=== PATIENT | female | born 1965 | race Caucasian/White ===

== ENCOUNTER 2019-02-11 12:36 | Emergency (ER) | payer SELFPAY ==
[~2019-02-11] VITALS: Ht 165.1 cm; Wt 86.2 kg
--- NOTE | ~2019-02-11 | EKG ---
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
[~2019-02-11 12:36] MED LIST: AMOXICILLIN500 MG PO; ASPIRIN1 POW PO; BACTRIM DS 8001 TA1 PO; BLOOD PRESSURE MED PO; CARDIZEM CD120 MG PO; CEPHALEXIN500 M1 PO; CIPRO500 MG PO; CLINDAMYCIN HC300 MG PO; CYCLOBENZAPRINE5 M3 PO; DARVOCET N 1001 TAB PO; DOXYCYCLINE100 M3 PO; FLEXERIL5 MG PO; HYDROCODONE BIT1 T11 PO; MOTRIN800 MG PO; NAPROSYN500 MG PO; NKHM; NORCO 5-325 TA1 EACH PO; OVRAL-21 50 MCG1 TAB PO; PRAVACHOL40 MG PO; PREDNISONE10 MG PO; ULTRAM50 MG PO
[2019-02-11 13:08] LABS: BASO # 0.1 10*3/uL (0.0-0.1); BASO % 0.4 % (0.0-1.0); EOS # 0.1 10*3/uL (0.0-0.4); EOS % 0.9 % (1.0-4.0); HEMATOCRIT 46.7 % (37.0-47.0); LYMPH # 4.2 10*3/uL (1.3-4.4); LYMPH % 31.9 % (27.0-41.0); MEAN CELL VOLUME 93.6 fl (81.0-99.0); MEAN CORPUSCULAR HGB 32.1 pg (27.0-31.0); MEAN CORPUSCULAR HGB CONC 34.3 g/dl (33.0-37.0); MEAN PLATELET VOLUME 9.6 fl (9.6-12.3); MONO # 0.7 10*3/uL (0.1-1.0); MONO % 5.2 % (3.0-9.0); NEUT % 61.1 % (47.0-73.0); PLATELET COUNT AUTOMATED 307 10*3/uL (130-400); RED BLOOD COUNT 4.99 10*6/uL (4.10-5.10); RED CELL DISTRI WIDTH 13.3 % (0-14.5); WHITE BLOOD COUNT 13.1 10*3/uL (4.8-10.8)
[2019-02-11 13:17] LABS: ACT PARTIAL THROMBO TIME 26.5 SECONDS (20.8-31.5)
[2019-02-11 13:33] LABS: ALBUMIN 3.6 gm/dl (3.1-4.5); ALKALINE PHOSPHATASE 115 U/L (45-117); BUN 9 mg/dl (7-24); CHLORIDE 105 mmol/L (98-107); CREATININE 0.62 mg/dL (0.55-1.02); SGOT/AST 17 IU/L (3-35); SGPT/ALT 27 U/L (12-78); SODIUM 140 mmol/L (136-145); TOTAL PROTEIN 7.3 gm/dL (6.4-8.2); TROPONIN I < 0.015 ng/ml (<0.045)
[2019-02-11 13:34] LABS: POTASSIUM 3.6 mmol/L (3.5-5.1)
== END 2019-02-11 14:28 | disposition left against medical advice (07) ==
LOC: ED 12:36
PROVIDERS: Emergency Medicine
DX: R07.9 Chest pain, unspecified (principal); M25.512 Pain in left shoulder; M79.602 Pain in left arm; I10 Essential (primary) hypertension; F17.210 Nicotine dependence, cigarettes, uncomplicated

== ENCOUNTER → 2019-02-17 | Outpatient (CLI) | payer SELFPAY ==
[2019-02-17 16:24] LABS: BILIRUBIN NEGATIVE (NEGATIVE); BLOOD TRACE-INTACT (NEGATIVE); CLARITY SL CLOUDY (CLEAR); COLOR YELLOW (YELLOW); GLUCOSE NEGATIVE (NEGATIVE); KETONE NEGATIVE (NEGATIVE); LEUKO ESTERASE 2+ (NEGATIVE); NITRITE NEGATIVE (NEGATIVE); SPECIFIC GRAVITY >= 1.030 (1.005-1.030); UROBILINOGEN 0.2 E.U./dl (0.2-1.0)
[2019-02-17 16:32] LABS: BACTERIA 2+; WBC TNTC wbc/hpf (0-5)
== END | disposition home or self-care (01) ==
LOC: RESCLI 01:02
PROVIDERS: Student in an Organized Health Care Education/Training Program
DX: I10 Essential (primary) hypertension (principal); R35.0 Frequency of micturition; R07.9 Chest pain, unspecified; R50.9 Fever, unspecified; E78.00 Pure hypercholesterolemia, unspecified; J44.9 Chronic obstructive pulmonary disease, unspecified; Z71.6 Tobacco abuse counseling; Z79.82 Long term (current) use of aspirin; Z79.899 Other long term (current) drug therapy; Z87.891 Personal history of nicotine dependence; Z88.8 Allergy status to other drugs, medicaments and biological substances

== ENCOUNTER → 2019-08-13 | Outpatient (CLI) | payer SELFPAY | END | disposition home or self-care (01) | LOC: RESCLI 02:06 | DX: Z23 Encounter for immunization (principal); I10 Essential (primary) hypertension; M17.0 Bilateral primary osteoarthritis of knee; E66.09 Other obesity due to excess calories; Z72.0 Tobacco use; Z71.6 Tobacco abuse counseling; Z68.36 Body mass index [BMI] 36.0-36.9, adult; Z88.8 Allergy status to other drugs, medicaments and biological substances ==

== ENCOUNTER → 2019-11-27 | Outpatient (CLI) | payer SELFPAY | END | disposition home or self-care (01) | LOC: RESCLI 01:20 | DX: I10 Essential (primary) hypertension (principal); M17.0 Bilateral primary osteoarthritis of knee; E66.09 Other obesity due to excess calories; Z72.0 Tobacco use; Z71.6 Tobacco abuse counseling; Z79.899 Other long term (current) drug therapy ==

== ENCOUNTER → 2020-07-09 | Outpatient (CLI) | payer SELFPAY | END | disposition home or self-care (01) | LOC: RESCLI 01:05 | PROVIDERS: ATTEND Emergency Medicine | DX: I10 Essential (primary) hypertension (principal); E66.9 Obesity, unspecified; M17.0 Bilateral primary osteoarthritis of knee; Z79.899 Other long term (current) drug therapy; Z98.51 Tubal ligation status; Z87.891 Personal history of nicotine dependence ==

== ENCOUNTER → 2020-10-15 | Outpatient (CLI) | payer SELFPAY | END | disposition home or self-care (01) | LOC: COVID19 11:29 | PROVIDERS: ATTEND Social Worker Clinical | DX: Z20.828 Contact with and (suspected) exposure to other viral communicable diseases (principal) ==

== ENCOUNTER → 2020-11-17 | Outpatient (CLI) | payer SELFPAY | END | disposition home or self-care (01) | LOC: RESCLI 00:15 | PROVIDERS: ATTEND Internal Medicine | DX: I10 Essential (primary) hypertension (principal); E78.00 Pure hypercholesterolemia, unspecified; Z79.899 Other long term (current) drug therapy ==

== ENCOUNTER → 2020-11-18 | Outpatient (CLI) | payer SELFPAY ==
[2020-11-18 12:55] LABS: BASO # 0.1 10*3/uL (0.0-0.1); BASO % 0.5 % (0.0-1.0); EOS # 0.1 10*3/uL (0.0-0.4); EOS % 0.8 % (1.0-4.0); HEMATOCRIT 50.1 % (37.0-47.0); LYMPH # 3.8 10*3/uL (1.3-4.4); LYMPH % 34.3 % (27.0-41.0); MEAN CELL VOLUME 93.6 fl (81.0-99.0); MEAN CORPUSCULAR HGB CONC 33.1 g/dl (33.0-37.0); MEAN PLATELET VOLUME 10.2 fl (9.6-12.3); MONO # 0.6 10*3/uL (0.1-1.0); MONO % 5.1 % (3.0-9.0); NEUT # 6.6 10*3/uL (2.3-7.9); PLATELET COUNT AUTOMATED 278 10*3/uL (130-400); RED BLOOD COUNT 5.35 10*6/uL (4.10-5.10); RED CELL DISTRI WIDTH 12.9 % (0-14.5); WHITE BLOOD COUNT 11.1 10*3/uL (4.8-10.8)
[2020-11-18 13:11] LABS: ALBUMIN 3.7 gm/dl (3.1-4.5); ALKALINE PHOSPHATASE 104 U/L (45-117); BUN 8 mg/dl (7-24); CHLORIDE 110 mmol/L (98-107); CHOLESTEROL 190 mg/dL (<200); CREATININE 0.67 mg/dL (0.55-1.02); HDL CHOLESTEROL 33 mg/dl (40-60); POTASSIUM 3.8 mmol/L (3.5-5.1); SGOT/AST 7 IU/L (3-35); SGPT/ALT 19 U/L (12-78); SODIUM 142 mmol/L (136-145); TOTAL PROTEIN 7.2 gm/dL (6.4-8.2); TRIGLYCERIDES 425 mg/dl (<150)
== END | disposition home or self-care (01) ==
LOC: LAB 12:22
PROVIDERS: Social Worker Clinical; ATTEND Internal Medicine Nephrology
DX: I10 Essential (primary) hypertension (principal)

== ENCOUNTER 2021-01-21 18:05 | Emergency (ER) | payer SELFPAY ==
[~2021-01-21] VITALS: Ht 165.1 cm; Wt 77.1 kg
[2021-01-21 18:34] LABS: HEMATOCRIT 48.9 % (37.0-47.0); MEAN CELL VOLUME 94.4 fl (81.0-99.0); MEAN CORPUSCULAR HGB 31.9 pg (27.0-31.0); MEAN CORPUSCULAR HGB CONC 33.7 g/dl (33.0-37.0); PLATELET COUNT AUTOMATED 322 10*3/uL (130-400); RED BLOOD COUNT 5.18 10*6/uL (4.10-5.10); RED CELL DISTRI WIDTH 13.1 % (0-14.5); WHITE BLOOD COUNT 13.7 10*3/uL (4.8-10.8)
[2021-01-21 18:53] LABS: ACT PARTIAL THROMBO TIME 27.6 SECONDS (20.0-32.1); ALBUMIN 3.7 gm/dl (3.1-4.5); ALKALINE PHOSPHATASE 109 U/L (45-117); BUN 11 mg/dl (7-24); CHLORIDE 109 mmol/L (98-107); CREATININE 0.73 mg/dL (0.55-1.02); SGOT/AST 7 IU/L (3-35); SGPT/ALT 20 U/L (12-78); SODIUM 141 mmol/L (136-145); TOTAL PROTEIN 7.3 gm/dL (6.4-8.2)
[2021-01-21 18:57] LABS: ETHYL ALCOHOL < 3.0 mg/dl (<3); TROPONIN I < 0.015 ng/ml (<0.045)
[2021-01-21 18:58] LABS: POTASSIUM 3.7 mmol/L (3.5-5.1)
[2021-01-21 19:02] LABS: TOTAL CELLS COUNTED 100 #CELLS
[2021-01-21 19:03] LABS: PLATELET SUFFICIENCY NORMAL (NORMAL)
== END 2021-01-21 21:49 | disposition home or self-care (01) ==
LOC: ED 18:05
PROVIDERS: Emergency Medicine
DX: R07.89 Other chest pain (principal); M79.602 Pain in left arm; J44.9 Chronic obstructive pulmonary disease, unspecified; F41.9 Anxiety disorder, unspecified; F17.210 Nicotine dependence, cigarettes, uncomplicated; Z98.890 Other specified postprocedural states; Z98.51 Tubal ligation status

== ENCOUNTER → 2021-04-21 | Outpatient (CLI) | payer SELFPAY | END | disposition home or self-care (01) | LOC: RESCLI 00:20 | PROVIDERS: ATTEND Internal Medicine | DX: I10 Essential (primary) hypertension (principal); E55.9 Vitamin D deficiency, unspecified; E66.9 Obesity, unspecified; E78.00 Pure hypercholesterolemia, unspecified; Z53.20 Procedure and treatment not carried out because of patient's decision for unspecified reasons; Z79.899 Other long term (current) drug therapy ==

== ENCOUNTER 2021-06-07 10:35 | Emergency (ER) | payer SELFPAY ==
[~2021-06-07] VITALS: Ht 165.1 cm; Wt 81.6 kg
== END 2021-06-07 11:38 | disposition home or self-care (01) ==
LOC: ED 10:35
DX: B34.9 Viral infection, unspecified (principal); Z20.822 Contact with and (suspected) exposure to COVID-19; F17.210 Nicotine dependence, cigarettes, uncomplicated; Z98.890 Other specified postprocedural states; Z98.51 Tubal ligation status

== ENCOUNTER 2021-09-29 15:38 | Emergency (ER) | payer SELFPAY ==
[~2021-09-29] VITALS: Ht 165.1 cm; Wt 95.7 kg
[2021-09-29] MEDS ORDERED: ZITHROMAX250 MG PO (17:32)
[2021-09-29] MEDS ORDERED: PREDNISONE50 MG PO (17:33)
== END 2021-09-29 17:57 | disposition home or self-care (01) ==
LOC: ED 15:38
DX: J20.9 Acute bronchitis, unspecified (principal); J44.9 Chronic obstructive pulmonary disease, unspecified; F17.210 Nicotine dependence, cigarettes, uncomplicated

== ENCOUNTER → 2022-01-03 | Outpatient (CLI) | payer SELFPAY ==
[~2022-01-03] MED LIST changes: +PREDNISONE50 MG PO; +ZITHROMAX250 MG PO
== END | disposition home or self-care (01) ==
LOC: RESCLI 01:38
PROVIDERS: ATTEND Family Medicine
DX: I10 Essential (primary) hypertension (principal); E66.9 Obesity, unspecified; E55.9 Vitamin D deficiency, unspecified; E78.00 Pure hypercholesterolemia, unspecified; F17.200 Nicotine dependence, unspecified, uncomplicated; Z00.00 Encounter for general adult medical examination without abnormal findings; Z79.899 Other long term (current) drug therapy; Z98.890 Other specified postprocedural states

== ENCOUNTER 2022-03-15 18:00 | Inpatient (IN) | payer SELFPAY ==
[~2022-03-15] VITALS: Wt 95.3 kg
[2022-03-15 18:07] VITALS: BP 156/83
[2022-03-15 18:40] LABS: BASO # 0.1 10*3/uL (0.0-0.1); BASO % 0.6 % (0.0-1.0); EOS # 0.1 10*3/uL (0.0-0.4); EOS % 0.7 % (1.0-4.0); HEMATOCRIT 50.4 % (37.0-47.0); LYMPH # 4.3 10*3/uL (1.3-4.4); LYMPH % 35.8 % (27.0-41.0); MEAN CORPUSCULAR HGB 31.2 pg (27.0-31.0); MEAN CORPUSCULAR HGB CONC 34.3 g/dl (33.0-37.0); MEAN PLATELET VOLUME 9.8 fl (9.6-12.3); MONO # 0.7 10*3/uL (0.1-1.0); NEUT # 6.8 10*3/uL (2.3-7.9); NEUT % 56.2 % (47.0-73.0); PLATELET COUNT AUTOMATED 302 10*3/uL (130-400); RED BLOOD COUNT 5.54 10*6/uL (4.10-5.10); RED CELL DISTRI WIDTH 12.9 % (0-14.5); WHITE BLOOD COUNT 12.1 10*3/uL (4.8-10.8)
[2022-03-15 18:58] LABS: ALKALINE PHOSPHATASE 105 U/L (45-117); BUN 14 mg/dl (7-24); CHLORIDE 109 mmol/L (98-107); CREATININE 0.71 mg/dL (0.55-1.02); LIPASE 95 U/L (73-393); POTASSIUM 3.6 mmol/L (3.5-5.1); SGOT/AST 18 IU/L (3-35); SGPT/ALT 27 U/L (12-78); SODIUM 141 mmol/L (136-145); TOTAL PROTEIN 6.9 gm/dL (6.4-8.2)
[2022-03-15 19:01] LABS: ACT PARTIAL THROMBO TIME 29.2 SECONDS (20.0-32.1)
[2022-03-15 19:37] VITALS: BP 146/80
[2022-03-15] MEDS ORDERED: LISINOPRIL40 MG PO (22:50)
[2022-03-15] MEDS ORDERED: COREG12.5 M1 PO (22:50)
[2022-03-15 22:55] VITALS: BP 150/86
[2022-03-16 01:27] VITALS: BP 138/78
[2022-03-16 06:05] VITALS: BP 150/86
[2022-03-16 06:32] LABS: BASO # 0.1 10*3/uL (0.0-0.1); BASO % 0.6 % (0.0-1.0); EOS # 0.1 10*3/uL (0.0-0.4); EOS % 0.9 % (1.0-4.0); HEMATOCRIT 50.3 % (37.0-47.0); LYMPH # 4.2 10*3/uL (1.3-4.4); LYMPH % 38.6 % (27.0-41.0); MEAN CELL VOLUME 91.8 fl (81.0-99.0); MEAN CORPUSCULAR HGB 31.9 pg (27.0-31.0); MEAN CORPUSCULAR HGB CONC 34.8 g/dl (33.0-37.0); MONO # 0.6 10*3/uL (0.1-1.0); MONO % 5.4 % (3.0-9.0); NEUT # 5.9 10*3/uL (2.3-7.9); NEUT % 53.8 % (47.0-73.0); PLATELET COUNT AUTOMATED 285 10*3/uL (130-400); RED BLOOD COUNT 5.48 10*6/uL (4.10-5.10); RED CELL DISTRI WIDTH 13.1 % (0-14.5); WHITE BLOOD COUNT 10.9 10*3/uL (4.8-10.8)
[2022-03-16 06:52] LABS: BUN 13 mg/dl (7-24); CHLORIDE 109 mmol/L (98-107); CHOLESTEROL 217 mg/dL (<200); POTASSIUM 4.2 mmol/L (3.5-5.1); SGOT/AST 7 IU/L (3-35); SGPT/ALT 24 U/L (12-78); SODIUM 139 mmol/L (136-145)
[2022-03-16 06:55] LABS: ALKALINE PHOSPHATASE 97 U/L (45-117); TRIGLYCERIDES 423 mg/dl (<150)
[2022-03-16 07:30] VITALS: BP 157/85
== END 2022-03-16 15:58 | disposition home or self-care (01) | DRG 313 ==
LOC: ED 18:00 → EDHOLD 21:28
PROVIDERS: Emergency Medicine; Student in an Organized Health Care Education/Training Program; ADMIT Student in an Organized Health Care Education/Training Program; ATTEND Student in an Organized Health Care Education/Training Program
DX: R07.9 Chest pain, unspecified (principal); J20.9 Acute bronchitis, unspecified; F17.210 Nicotine dependence, cigarettes, uncomplicated; I10 Essential (primary) hypertension; R73.9 Hyperglycemia, unspecified; J44.9 Chronic obstructive pulmonary disease, unspecified; D75.1 Secondary polycythemia; R09.1 Pleurisy; Z98.51 Tubal ligation status; Z82.49 Family history of ischemic heart disease and other diseases of the circulatory system; Z83.3 Family history of diabetes mellitus

== ENCOUNTER → 2022-03-28 | Outpatient (CLI) | payer SELFPAY ==
[~2022-03-28] MED LIST changes: +COREG12.5 M1 PO; +LISINOPRIL40 MG PO
== END | disposition home or self-care (01) ==
LOC: RESCLI 01:21
PROVIDERS: ATTEND Internal Medicine
DX: I10 Essential (primary) hypertension (principal); E66.9 Obesity, unspecified; E55.9 Vitamin D deficiency, unspecified; E78.2 Mixed hyperlipidemia; Z79.899 Other long term (current) drug therapy

== ENCOUNTER 2022-09-01 19:30 | Emergency (ER) | payer SELFPAY ==
[~2022-09-01] VITALS: Ht 165.1 cm; Wt 79.4 kg
[2022-09-01] MEDS ORDERED: PENICILLIN VK500 MG PO (19:49)
== END 2022-09-01 19:54 | disposition home or self-care (01) ==
LOC: ED 19:30
DX: K02.9 Dental caries, unspecified (principal); H92.01 Otalgia, right ear; Z79.899 Other long term (current) drug therapy; Z98.51 Tubal ligation status; Z98.890 Other specified postprocedural states; F17.200 Nicotine dependence, unspecified, uncomplicated

== ENCOUNTER → 2022-09-05 | Outpatient (CLI) | payer SELFPAY ==
[~2022-09-05] MED LIST changes: +PENICILLIN VK500 MG PO
== END | disposition home or self-care (01) ==
LOC: RESCLI 08:59
PROVIDERS: ATTEND Internal Medicine
DX: I10 Essential (primary) hypertension (principal); E78.2 Mixed hyperlipidemia; E55.9 Vitamin D deficiency, unspecified; E66.9 Obesity, unspecified; E78.00 Pure hypercholesterolemia, unspecified; R53.83 Other fatigue; Z12.39 Encounter for other screening for malignant neoplasm of breast; Z13.820 Encounter for screening for osteoporosis; F17.200 Nicotine dependence, unspecified, uncomplicated; Z82.49 Family history of ischemic heart disease and other diseases of the circulatory system; Z98.890 Other specified postprocedural states; Z79.899 Other long term (current) drug therapy

== ENCOUNTER 2022-10-15 11:15 | Emergency (ER) | payer SELFPAY ==
[~2022-10-15] VITALS: Ht 165.1 cm; Wt 105.2 kg
[2022-10-15] MEDS ORDERED: NEURONTIN300 MG PO (12:40)
[2022-10-15] MEDS ORDERED: LIDODERM1 EACH T (12:40)
[2022-10-15] MEDS ORDERED: PREDNISONE20 M1 PO (12:40)
[2022-10-15] MEDS ORDERED: RELAFEN500 M1 PO (12:40)
[2022-10-15] MEDS ORDERED: CYCLOBENZAPRINE10 MG PO (12:40)
== END 2022-10-15 13:41 | disposition home or self-care (01) ==
LOC: ED 11:15
DX: M54.12 Radiculopathy, cervical region (principal); F17.200 Nicotine dependence, unspecified, uncomplicated; Z98.51 Tubal ligation status; Z98.890 Other specified postprocedural states

== ENCOUNTER 2023-01-07 15:06 | Emergency (ER) | payer SELFPAY ==
[~2023-01-07 15:06] MED LIST changes: +CYCLOBENZAPRINE10 MG PO; +LIDODERM1 EACH T; +NEURONTIN300 MG PO; +PREDNISONE20 M1 PO; +RELAFEN500 M1 PO
[2023-01-07 15:45] LABS: BASO # 0.1 10*3/uL (0.0-0.1); BASO % 0.5 % (0.0-1.0); EOS # 0.2 10*3/uL (0.0-0.4); EOS % 1.4 % (1.0-4.0); HEMATOCRIT 45.4 % (37.0-47.0); LYMPH # 4.2 10*3/uL (1.3-4.4); LYMPH % 37.8 % (27.0-41.0); MEAN CELL VOLUME 94.6 fl (81.0-99.0); MEAN CORPUSCULAR HGB 31.9 pg (27.0-31.0); MEAN CORPUSCULAR HGB CONC 33.7 g/dl (33.0-37.0); MEAN PLATELET VOLUME 9.7 fl (9.6-12.3); MONO # 0.6 10*3/uL (0.1-1.0); MONO % 5.4 % (3.0-9.0); NEUT # 6.1 10*3/uL (2.3-7.9); NEUT % 54.5 % (47.0-73.0); PLATELET COUNT AUTOMATED 289 10*3/uL (130-400); RED CELL DISTRI WIDTH 13.1 % (0-14.5); WHITE BLOOD COUNT 11.2 10*3/uL (4.8-10.8)
[2023-01-07 16:01] LABS: ALKALINE PHOSPHATASE 93 U/L (46-116); BUN 8 mg/dl (9-23); CHLORIDE 108 mmol/L (98-107); POTASSIUM 3.5 mmol/L (3.4-5.1); SGPT/ALT 27 U/L (10-49); TOTAL PROTEIN 6.6 gm/dL (6.0-8.0)
== END 2023-01-07 17:54 | disposition left against medical advice (07) ==
LOC: ED 15:06
PROVIDERS: Nurse Practitioner Family
DX: R07.89 Other chest pain (principal); I10 Essential (primary) hypertension; J44.9 Chronic obstructive pulmonary disease, unspecified; F41.9 Anxiety disorder, unspecified; F17.200 Nicotine dependence, unspecified, uncomplicated; F12.90 Cannabis use, unspecified, uncomplicated; Z98.890 Other specified postprocedural states; Z98.51 Tubal ligation status

== ENCOUNTER 2023-05-10 06:10 | Emergency (ER) | payer SELFPAY ==
[~2023-05-10] VITALS: Ht 165.1 cm; Wt 105.2 kg
[2023-05-10] MEDS ORDERED: PENICILLIN VK500 MG PO ×2 (06:27→06:45)
== END 2023-05-10 06:47 | disposition home or self-care (01) ==
LOC: ED 06:10
DX: K02.9 Dental caries, unspecified (principal); K08.89 Other specified disorders of teeth and supporting structures; I10 Essential (primary) hypertension; F41.9 Anxiety disorder, unspecified; J44.9 Chronic obstructive pulmonary disease, unspecified; Z98.51 Tubal ligation status; Z98.890 Other specified postprocedural states; F17.200 Nicotine dependence, unspecified, uncomplicated; F12.90 Cannabis use, unspecified, uncomplicated

== ENCOUNTER → 2023-07-26 | Outpatient (CLI) | payer SELFPAY | END | disposition home or self-care (01) | LOC: RESCLI 15:30 | PROVIDERS: ATTEND Student in an Organized Health Care Education/Training Program | DX: I10 Essential (primary) hypertension (principal); E78.2 Mixed hyperlipidemia; E55.9 Vitamin D deficiency, unspecified; M17.0 Bilateral primary osteoarthritis of knee; Z82.49 Family history of ischemic heart disease and other diseases of the circulatory system; Z98.890 Other specified postprocedural states; Z79.899 Other long term (current) drug therapy ==

== ENCOUNTER 2023-09-29 07:28 | Emergency (ER) | payer SELFPAY ==
[~2023-09-29] VITALS: Ht 165.1 cm; Wt 112.9 kg
[2023-09-29 07:59] LABS: BASO % 0.4 % (0.0-1.0); EOS # 0.1 10*3/uL (0.0-0.4); EOS % 0.9 % (1.0-4.0); HEMATOCRIT 49.5 % (37.0-47.0); LYMPH # 2.7 10*3/uL (1.3-4.4); LYMPH % 26.1 % (27.0-41.0); MEAN CORPUSCULAR HGB CONC 34.7 g/dl (33.0-37.0); MEAN PLATELET VOLUME 9.5 fl (9.6-12.3); MONO # 0.5 10*3/uL (0.1-1.0); MONO % 4.7 % (3.0-9.0); NEUT % 67.2 % (47.0-73.0); PLATELET COUNT AUTOMATED 252 10*3/uL (130-400); RED BLOOD COUNT 5.38 10*6/uL (4.10-5.10); RED CELL DISTRI WIDTH 12.9 % (0-14.5); WHITE BLOOD COUNT 10.4 10*3/uL (4.8-10.8)
[2023-09-29 08:21] LABS: ALKALINE PHOSPHATASE 106 U/L (46-116); BUN 7 mg/dl (9-23); CHLORIDE 108 mmol/L (98-107); POTASSIUM 4.5 mmol/L (3.4-5.1); SGPT/ALT 24 U/L (5-49); TOTAL PROTEIN 6.6 gm/dL (6.0-8.0)
[2023-09-29] MEDS ORDERED: ANTIVERT25 M2 PO (09:10)
== END 2023-09-29 09:33 | disposition home or self-care (01) ==
LOC: ED 07:28
PROVIDERS: Emergency Medicine
DX: H81.10 Benign paroxysmal vertigo, unspecified ear (principal); R11.2 Nausea with vomiting, unspecified; F41.9 Anxiety disorder, unspecified; J44.9 Chronic obstructive pulmonary disease, unspecified; I10 Essential (primary) hypertension; Z98.51 Tubal ligation status; Z98.890 Other specified postprocedural states; F17.200 Nicotine dependence, unspecified, uncomplicated; F12.90 Cannabis use, unspecified, uncomplicated

== ENCOUNTER 2024-12-21 20:25 | Emergency (ER) | payer SELFPAY ==
[~2024-12-21] VITALS: Ht 165.1 cm; Wt 88.5 kg
[~2024-12-21 20:25] MED LIST changes: +ANTIVERT25 M2 PO
[2024-12-21] MEDS ORDERED: AMOX-CLAV 875-1 EACH PO (20:53)
[2024-12-21] MEDS ORDERED: Acetaminophen/Hydrocodone HP 10/325 PO ONE (20:55)
[2024-12-21] MEDS ORDERED: Amoxicillin/Clavulanate Pota 875 MG TAB PO ONE (20:55)
== END 2024-12-21 21:07 | disposition home or self-care (01) ==
LOC: ED 20:25
DX: K08.89 Other specified disorders of teeth and supporting structures (principal); R51.9 Headache, unspecified; I10 Essential (primary) hypertension; J44.9 Chronic obstructive pulmonary disease, unspecified; F41.9 Anxiety disorder, unspecified; F17.200 Nicotine dependence, unspecified, uncomplicated; F12.90 Cannabis use, unspecified, uncomplicated; Z98.890 Other specified postprocedural states

== ENCOUNTER → 2025-01-14 | Outpatient (CLI) | payer SELFPAY ==
[~2025-01-14] MED LIST changes: +AMOX-CLAV 875-1 EACH PO; +GOOD SENSE ASP325 MG PO; +IMDUR SA30 MG PO; +METOPROLOL SUCC25 M2 PO; +NORVASC5 MG PO; +ROSUVASTATIN CA20 MG PO
== END | disposition home or self-care (01) ==
LOC: RESCLI 08:59
PROVIDERS: ATTEND Internal Medicine
DX: K02.9 Dental caries, unspecified (principal); I25.10 Atherosclerotic heart disease of native coronary artery without angina pectoris; I10 Essential (primary) hypertension; E78.5 Hyperlipidemia, unspecified; Z79.899 Other long term (current) drug therapy; Z98.890 Other specified postprocedural states